=== PATIENT | male | born 1950 | race Caucasian/White ===

== ENCOUNTER 2019-06-10 04:46 | Observation (INO) | payer OTHER ==
[~2019-06-10] VITALS: Ht 182.9 cm; Wt 72.6 kg
[2019-06-10 04:47] VITALS: BP 165/90
[2019-06-10] MEDS ORDERED: PROPAFENONE 22225 M1 PO (04:57)
[2019-06-10] MEDS ORDERED: IMITREX100 MG PO (04:58)
[2019-06-10] MEDS ORDERED: CARDURA4 MG PO (04:58)
[2019-06-10] MEDS ORDERED: CO Q-10100 MG PO (04:59)
[2019-06-10] MEDS ORDERED: EXCEDRIN CAPLE1 EACH PO (04:59)
[2019-06-10 05:33] LABS: ABSOLUTE EOSINOPHILS 0.2 thou/uL (0.0-0.7); ABSOLUTE LYMPHOCYTES 1.3 thou/uL (0.8-5.3); ABSOLUTE MONOCYTES 0.5 thou/uL (0.0-1.2); ABSOLUTE NEUTROPHILS 2.5 thou/uL (1.6-8.1); BASOPHILS 0.8 %; HEMATOCRIT 38.5 % (42.0-52.0); HEMOGLOBIN 12.8 gm/dL (14.0-18.0); LYMPHOCYTES 30.1 %; MCHC 33.2 g/dL (28.0-37.0); MCV 93.4 fL (80.0-100.0); MONOCYTES 10.4 %; MPV 8.2 fl. (7.2-11.1); NUCLEATED RBCS 0 /100WBC; PLATELET COUNT* 190 thou/uL (150-400); POLYS 54.7 %; RBC 4.12 mil/uL (4.50-6.00); RDW-CV 13.6 % (10.5-14.5); WBC 4.5 thou/uL (4.0-11.0)
[2019-06-10 05:41] LABS: CALCIUM 8.7 mg/dL (8.5-10.1); CREATININE 1.2 mg/dL (0.6-1.3); POTASSIUM 3.7 mmol/L (3.5-5.1)
[2019-06-10 05:51] LABS: ALBUMIN 3.5 g/dL (3.4-5.0); TOTAL BILIRUBIN 0.3 mg/dL (<0.1-1.0); TOTAL PROTEIN 6.8 g/dL (6.4-8.2)
--- NOTE | 2019-06-10 07:05 | NUR ---
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 BOTH IVS ARE PATENT AND FLUSH WELL.
--- NOTE | 2019-06-10 08:09 | NUR ---
THIS NURSE TALKED WITH DR. PADILLA IN REGARD TO PT WANTING TO LEAVE AMA. DR. PADILLA STATED THAT HE WOULD "SEE THE PT WITHIN THE HOUR". PT HAS DECIDED TO STAY AT THIS TIME TO SEE DR. PADILLA.
--- NOTE | 2019-06-10 08:53 | NUR ---
DR. PADILLA AT BEDSIDE WITH PATIENT AT THIS TIME.
[2019-06-10 09:17] VITALS: BP 117/66
[2019-06-10] MEDS ORDERED: ASA5UEC PO (09:33)
[2019-06-10 09:40] LABS: CHOLESTEROL 153 mg/dL (<200); HDL CHOLESTEROL 47 mg/dL (>40); LDL CHOLESTEROL 95 mg/dL (<100); SERUM ASSESSMENT Clear; TC:HDL 3.3 Ratio (Not establshd); TRIGLYCERIDE 55 mg/dL (<150); TROPONIN-I LEVEL <0.06 ng/mL (<0.06); VLDL 11 mg/dL (<40)
[2019-06-10 10:30] VITALS: BP 135/73
[2019-06-10] MEDS ORDERED: TRANSDERM-SCOP1 EACH TRANSDERM (11:36)
[2019-06-10 12:45] VITALS: BP 135/73
--- NOTE | 2019-06-10 13:25 | NUR ---
PATIENT DISCHARGED TO HOME ALL DISCHARGE INDTRUCTIONS GIVEN AND ACKNOLEDEGED AND SIGNED PAPERWORK GIVEN IV AND HEART MONITOR REMOVED PERSONAL BELONGINGS RETURNED PATIENT WALKED OUT TO [facility] [employer]
--- NOTE | 2019-06-10 17:17 | EKG ---
[place] [address] ELECTROCARDIOGRAM REPORT Name: AYO JAMESIRIS Wilkins Room: [address]#: [id number] Admission: 06/10/19 Attend Phys: Shorty Grove MD Discharge: 06/10/19 Date of : 54 Report #: [id number] THIS REPORT FOR: //name// [facility] ED Test Date: 2019-06-10 Test Time: 04:54:15 Pat Name: ANGEL JAMES Department: Room: [address] Gender: M Hospital Cna: SCOTT : 1950 Requested By: Lety Branch Order Number: [id number] Zoey BARRIENTOS: Augustine Dominguez Measurements Intervals [place] Rate: 43 P: 86 NH: 260 QRS: 21 QRSD: 119 T: 68 QT: 492 QTc: 417 Interpretive Statements Slow sinus arrhythmia Prolonged NH interval Incomplete right bundle branch block Left ventricular hypertrophy No previous ECG available for comparison Electronically Signed On 06-10-2019 17:17:12 CDT by Augustine Dominguez [email or web address] <ELECTRONICALLY SIGNED> By: Augustine Dominguze MD, [facility] 06/10/19 1717 [id number] Augustine Dominguez MD, FACC /EPI
== END 2019-06-10 13:30 | disposition home or self-care (01) ==
LOC: M.ERS 04:46 → M.TBA-ER 06:59 → M.2W 06:59 → M.ORTHSURG 09:25 → M.2W 10:13
PROVIDERS: Emergency Medicine; Family Medicine; ADMIT Internal Medicine
DX: R42 Dizziness and giddiness (principal); D68.69 Other thrombophilia; I48.0 Paroxysmal atrial fibrillation; N40.0 Benign prostatic hyperplasia without lower urinary tract symptoms; I34.1 Nonrheumatic mitral (valve) prolapse; Z79.82 Long term (current) use of aspirin; Z79.899 Other long term (current) drug therapy; Z79.01 Long term (current) use of anticoagulants